=== PATIENT | female | born 1990 ===

== ENCOUNTER 2018-05-27 12:28 | Inpatient (IN) ==
[2018-05-27] MEDS ORDERED: LACTATED RINGERS 250 ML IV ONE (16:22)
[2018-05-27] MEDS ORDERED: ONDANSETRON 4 MG/2 ML VIAL IV PRN (16:22)
[2018-05-27] MEDS ORDERED: AMPICILLIN INJ 2,000 MG in SODIUM CHLORIDE 0.9% 100 ML IV ONE (16:26)
[2018-05-27 16:44] LABS: Basophils % 0.2 % (0.0-0.8); Eosinophils % 0.3 % (0.00-10.9); Hematocrit 28.7 VOL% (35.7-47.0); Hemoglobin 8.7 GM/DL (12.0-16.0); Immature Granulocytes % 0.4 %; Immature Granulocytes Absolute 0.05 #; Lymphocytes # 2.9 10*3/uL (1.4-4.0); Lymphocytes % 20.4 % (21.3-54.2); Mean Corpuscular HGB Conc 30.3 GM/DL (32-36); Mean Corpuscular Hemoglobin 21 PG (27-34); Mean Corpuscular Volume 70.5 FL (87-102); Monocytes # 0.7 10*3/uL (0.11-0.8); Monocytes % 5.2 % (1.7-12.7); Neutrophils # 10.3 10*3/uL (1.4-7.4); Neutrophils % 73.5 % (38.7-73.9); Platelet Count 381 T/CUMM (130-400); Red Blood Count 4.07 MC/CUMM (3.8-5.5); Red Cell Distribution Width 18.9 % (9.3-17.3)
[2018-05-27] MEDS ORDERED: OXYTOCIN/LR 20 UNIT/1,000 ML BAG IV SCH (17:00)
[2018-05-27] MEDS: LACTATED RINGERS 1,000 ML IV SCH ×2 (17:06→21:49)
[2018-05-27 17:08] LABS: Alanine Aminotransferase 10 U/L (13-56); Albumin 2.6 G/DL (3.4-5.0); Alkaline Phosphatase 161 U/L (45-117); Aspartate Amino Transferase 12 U/L (0-37); Bilirubin,Total < 0.39 MG/DL (0.2-1.0); Blood Urea Nitrogen 9 MG/DL (7-18); Calcium 8.4 MG/DL (8.5-10.1); Glucose 65 MG/DL (74-106); Osmolality,Calculated 269.8 MOS/KG (273-304); Sodium 137 MMOL/L (136-145); Total Protein 7.3 G/DL (6.4-8.3); Uric Acid 5.3 MG/DL (2.6-6.0)
[2018-05-27] MEDS ORDERED: INFLUENZA VIRUS VACCINE 0.5 ML SYRINGE IM ONE (17:14)
[2018-05-27 17:54] LABS: HIV Antigen/Antibody Result Nonreactive (Nonreactive)
[2018-05-27] MEDS: AMPICILLIN INJ 1,000 MG in SODIUM CHLORIDE 0.9% 100 ML IV SCH (21:20)
[2018-05-27] MEDS ORDERED: MEPERIDINE 50 MG/1 ML VIAL IV ONE (21:41)
[2018-05-27] MEDS ORDERED: PROMETHAZINE 25 MG/1 ML VIAL IM ONE (22:48)
[2018-05-27] MEDS ORDERED: ePHEDrine 50 MG/ML AMP IV PRN (22:48)
[2018-05-27] MEDS ORDERED: diphenhydrAMINE 50 MG/1 ML VIAL IV PRN ×2 (22:48)
[2018-05-27] MEDS ORDERED: NALOXONE 0.4 MG/ML VIAL IV PRN (22:48)
[2018-05-27] MEDS ORDERED: hydrOXYzine HCL 25 MG/1 ML VIAL IM PRN (22:48)
[2018-05-27] MEDS ORDERED: CITRIC ACID/SODIUM CITRATE 30 ML UDCUP PO ONE (22:53)
[2018-05-27] MEDS ORDERED: FAMOTIDINE 20 MG/2 ML VIAL IV ONE (22:54)
[2018-05-27] MEDS ORDERED: fentaNYL 2 MCG/ROPIV 0.2% EPID 100 ML EPIDURAL SCH (23:00)
[2018-05-27] MEDS ORDERED: miSOPROStol 200 MCG TABLET ONE (23:11)
[2018-05-27] MEDS ORDERED: LIDOCAINE 1% 50 ML VIAL ONE (23:11)
[2018-05-27] MEDS ORDERED: CARBOPROST TROMETHAMINE 250 MCG/ML AMP IM ONE (23:12)
[2018-05-27] MEDS ORDERED: METHYLERGONOVINE 0.2 MG/1 ML AMP ONE (23:12)
[2018-05-28] MEDS ORDERED: BENZOCAINE 20%/MENTHOL 0.5% SPRAY 56 GM CAN TOP PRN ×2 (00:46→10:42)
[2018-05-28] MEDS ORDERED: ONDANSETRON 4 MG/2 ML VIAL IV PRN (00:46)
[2018-05-28] MEDS ORDERED: OXYTOCIN/LR 20 UNIT/1,000 ML BAG IV ONE (00:46)
[2018-05-28] MEDS ORDERED: DIPH/TET/ACEL PERT BOOSTER VACCINE 0.5 ML VIAL IM ONE (00:46)
[2018-05-28] MEDS ORDERED: MEASLES/MUMPS/RUBELLA VACCINE 0.5 ML VIAL SUBCUT ONE (00:46)
[2018-05-28] MEDS ORDERED: HYDROCORTISONE 2.5% RECTAL CREAM 30 GM TUBE TOP PRN (00:46)
[2018-05-28] MEDS ORDERED: BISACODYL 10 MG SUPP RECTAL PRN (00:46)
[2018-05-28] MEDS ORDERED: LANOLIN 50% CREAM 0.3 OZ TUBE TOP PRN (00:46)
[2018-05-28] MEDS ORDERED: IBUPROFEN 800 MG TABLET PO PRN (00:46)
[2018-05-28] MEDS ORDERED: RHO(D) IMMUNE GLOBULIN 300 MCG SYRINGE IM ONE (00:46)
[2018-05-28] MEDS ORDERED: oxyCODONE/ACETAMINOPHEN 5-325 MG TABLET PO PRN ×2 (00:46)
[2018-05-28] MEDS ORDERED: WITCH HAZEL PADS 100/JAR TOP PRN (00:46)
[2018-05-28] MEDS ORDERED: ACETAMINOPHEN 325 MG TABLET PO PRN (00:46)
[2018-05-28] MEDS: AMPICILLIN INJ 1,000 MG in SODIUM CHLORIDE 0.9% 100 ML IV SCH (02:09)
[2018-05-28 05:32] LABS: Apearance,Urine CLEAR (Clear); Bilirubin,Urine Negative (Negative); Blood, Urine Small mg/dL (Negative); Glucose,Urine (UA) Negative (Negative); Hyaline Casts,Urine 1 /LPF (0-3); Ketones,Urine 80 mg/dL (Negative); Mucus,Urine Occasional /LPF (Occasional); Nitrite,Urine Negative (Negative); Protein,Urine 30 MG/DL; RBC,Urine 4 /HPF (0-4); Squamous Epithelial Cell,Urine Occasional /HPF (0-10); Urine Color Yellow (Yellow); Urine Specific Gravity 1.027 (1.001-1.035); Urine Urobilinogen < 2.0 EU/DL (0.2-1.0); WBC,Urine 2 /HPF (0-6)
[2018-05-28 05:40] LABS: Basophils % 0.1 % (0.0-0.8); Hematocrit 30.5 VOL% (35.7-47.0); Hemoglobin 9.3 GM/DL (12.0-16.0); Immature Granulocytes % 0.5 %; Immature Granulocytes Absolute 0.11 #; Lymphocytes # 2.3 10*3/uL (1.4-4.0); Lymphocytes % 10.3 % (21.3-54.2); Mean Corpuscular HGB Conc 30.5 GM/DL (32-36); Mean Corpuscular Hemoglobin 21 PG (27-34); Mean Corpuscular Volume 69.5 FL (87-102); Mean Platelet Volume 10.2 FL (9.6-12.0); Monocytes # 1.1 10*3/uL (0.11-0.8); Monocytes % 5.2 % (1.7-12.7); Neutrophils # 18.3 10*3/uL (1.4-7.4); Neutrophils % 83.9 % (38.7-73.9); Platelet Count 434 T/CUMM (130-400); Red Blood Count 4.39 MC/CUMM (3.8-5.5); Red Cell Distribution Width 18.9 % (9.3-17.3); White Blood Count 21.9 T/CUMM (4-12)
[2018-05-28 06:18] LABS: Lymphocytes 9 % (20-55); Segmented Neutrophils 86 % (50-85); Total Cells Counted 100
[2018-05-28 06:19] LABS: Hypochromasia 1+; Microcytosis 1+; Ovalocytes Slight
[2018-05-28 06:20] LABS: Platelet Estimate Increased
[2018-05-28 07:08] LABS: Basophils % 0.2 % (0.0-0.8); Hematocrit 30.3 VOL% (35.7-47.0); Hemoglobin 9.1 GM/DL (12.0-16.0); Immature Granulocytes % 0.5 %; Lymphocytes # 2.1 10*3/uL (1.4-4.0); Lymphocytes % 11.3 % (21.3-54.2); Mean Corpuscular Hemoglobin 21 PG (27-34); Mean Corpuscular Volume 71.1 FL (87-102); Monocytes # 1.1 10*3/uL (0.11-0.8); Monocytes % 5.8 % (1.7-12.7); Neutrophils # 15.1 10*3/uL (1.4-7.4); Neutrophils % 82.2 % (38.7-73.9); Platelet Count 380 T/CUMM (130-400); Red Blood Count 4.26 MC/CUMM (3.8-5.5); Red Cell Distribution Width 18.9 % (9.3-17.3); White Blood Count 18.4 T/CUMM (4-12)
[2018-05-28] MEDS: FERROUS SULFATE 325 MG TABLET PO SCH ×3 (08:52→22:16)
[2018-05-28] MEDS: MULTIVITAMIN (PRENATAL) TABLET PO SCH (08:52)
[2018-05-28] MEDS: DOCUSATE SODIUM 100 MG CAPSULE PO SCH ×2 (08:52→22:17)
[2018-05-29] MEDS: MULTIVITAMIN (PRENATAL) TABLET PO SCH (09:18)
[2018-05-29] MEDS: CHOLECALCIFEROL 5,000 UNIT TABLET PO SCH (09:19)
[2018-05-29] MEDS: DOCUSATE SODIUM 100 MG CAPSULE PO SCH ×2 (09:19→22:10)
[2018-05-29] MEDS: FERROUS SULFATE 325 MG TABLET PO SCH ×3 (09:19→22:10)
[2018-05-30 07:43] VITALS: BP 129/73
[2018-05-30] MEDS ORDERED: DIPH/TET/ACEL PERT BOOSTER VACCINE 0.5 ML VIAL IM ONE (07:58)
[2018-05-30] MEDS: DOCUSATE SODIUM 100 MG CAPSULE PO SCH (08:58)
[2018-05-30] MEDS: MULTIVITAMIN (PRENATAL) TABLET PO SCH (08:58)
[2018-05-30] MEDS: CHOLECALCIFEROL 5,000 UNIT TABLET PO SCH (08:58)
[2018-05-30] MEDS: FERROUS SULFATE 325 MG TABLET PO SCH (08:58)
== END 2018-05-30 11:50 | disposition home or self-care (01) | DRG 560 ==
LOC: N.LDOUT 12:28 → N.LD 12:29 → N.OB 05-28 14:06
PROVIDERS: ADMIT Obstetrics & Gynecology; ATTEND Obstetrics & Gynecology

== ENCOUNTER 2020-08-08 21:34 | Inpatient (IN) ==
[2020-08-08] MEDS ORDERED: LACTATED RINGERS 1,000 ML IV ONE (21:45)
[2020-08-08] MEDS ORDERED: ONDANSETRON 4 MG/2 ML VIAL IV PRN (21:45)
[2020-08-08] MEDS ORDERED: BUTORPHANOL 2 MG/ML VIAL IV PRN (21:45)
[2020-08-08] MEDS ORDERED: LACTATED RINGERS 1,000 ML IV SCH (22:00)
[2020-08-08 22:31] LABS: Basophils % 0.1 % (0.0-0.8); Eosinophils # 0.1 10*3/uL (0.0-0.87); Eosinophils % 0.4 % (0.00-10.9); Hematocrit 29.5 VOL% (35.7-47.0); Hemoglobin 8.5 GM/DL (12.0-16.0); Immature Granulocytes % 0.5 %; Immature Granulocytes Absolute 0.07 #; Lymphocytes # 2.7 10*3/uL (1.4-4.0); Lymphocytes % 17.9 % (21.3-54.2); Mean Corpuscular HGB Conc 28.8 GM/DL (32-36); Mean Corpuscular Volume 66.6 FL (87-102); Mean Platelet Volume 9.9 FL (9.6-12.0); Monocytes % 5.7 % (1.7-12.7); Neutrophils % 75.4 % (38.7-73.9); Platelet Count 410 T/CUMM (130-400); Red Blood Count 4.43 MC/CUMM (3.8-5.5); Red Cell Distribution Width 21.7 % (9.3-17.3); White Blood Count 15.2 T/CUMM (4-12)
[2020-08-08 23:04] LABS: Alanine Aminotransferase 9 U/L (13-56); Albumin 2.7 G/DL (3.4-5.0); Alkaline Phosphatase 104 U/L (45-117); Aspartate Amino Transferase 14 U/L (0-37); Bilirubin,Total < 0.39 MG/DL (0.2-1.0); Blood Urea Nitrogen 7 MG/DL (7-18); Calcium 8.8 MG/DL (8.5-10.1); Carbon Dioxide 20 MMOL/L (21-32); Estimated Glom Filtration Rate 173 ML/MIN; Glucose 84 MG/DL (74-106); Sodium 136 MMOL/L (136-145); Total Protein 7.5 G/DL (6.4-8.2)
[2020-08-09] MEDS ORDERED: ONDANSETRON 4 MG/2 ML VIAL IV ONE (06:15)
[2020-08-09] MEDS ORDERED: PROMETHAZINE 25 MG/1 ML VIAL IM ONE (06:15)
[2020-08-09] MEDS ORDERED: diphenhydrAMINE 50 MG/1 ML VIAL IV PRN ×2 (06:15)
[2020-08-09] MEDS ORDERED: ePHEDrine 50 MG/ML VIAL IV PRN (06:15)
[2020-08-09] MEDS ORDERED: NALOXONE 0.4 MG/ML VIAL IV PRN (06:15)
[2020-08-09] MEDS ORDERED: hydrOXYzine HCL 25 MG/1 ML VIAL IM PRN (06:15)
[2020-08-09] MEDS ORDERED: FAMOTIDINE 20 MG/2 ML VIAL IV ONE (06:17)
[2020-08-09] MEDS ORDERED: CITRIC ACID/SODIUM CITRATE 30 ML UDCUP PO ONE (06:19)
[2020-08-09] MEDS ORDERED: fentaNYL 2 MCG/ROPIV 0.2% EPID 100 ML EPIDURAL SCH (06:30)
[2020-08-09] MEDS ORDERED: miSOPROStoL 200 MCG TABLET ONE (07:02)
[2020-08-09] MEDS ORDERED: OXYTOCIN/LR 20 UNIT/1,000 ML BAG IV ONE ×3 (07:02→07:25)
[2020-08-09] MEDS ORDERED: CARBOPROST TROMETHAMINE 250 MCG/ML AMP IM ONE (07:03)
[2020-08-09] MEDS ORDERED: METHYLERGONOVINE 0.2 MG/1 ML AMP ONE (07:03)
[2020-08-09] MEDS ORDERED: ACETAMINOPHEN 325 MG TABLET PO PRN (07:25)
[2020-08-09] MEDS ORDERED: BENZOCAINE 20%/MENTHOL 0.5% SPRAY 56 GM CAN TOP PRN (07:25)
[2020-08-09] MEDS ORDERED: oxyCODONE/ACETAMINOPHEN 5-325 MG TABLET PO PRN (07:25)
[2020-08-09] MEDS ORDERED: HYDROCORTISONE 2.5% RECTAL CREAM 30 GM TUBE TOP PRN (07:25)
[2020-08-09] MEDS ORDERED: WITCH HAZEL PADS 100/JAR TOP PRN (07:25)
[2020-08-09] MEDS ORDERED: MEASLES/MUMPS/RUBELLA VACCINE 0.5 ML VIAL SUBCUT ONE (07:25)
[2020-08-09] MEDS ORDERED: ONDANSETRON 4 MG/2 ML VIAL IV PRN (07:25)
[2020-08-09] MEDS ORDERED: LANOLIN 50% CREAM 0.3 OZ TUBE TOP PRN (07:25)
[2020-08-09] MEDS ORDERED: BISACODYL 10 MG SUPP RECTAL PRN (07:25)
[2020-08-09] MEDS ORDERED: DIPH/TET/ACEL PERT BOOSTER VACCINE 0.5 ML VIAL IM ONE (07:25)
[2020-08-09] MEDS ORDERED: RHO(D) IMMUNE GLOBULIN 300 MCG SYRINGE IM ONE (07:25)
[2020-08-09 07:32] LABS: Cord Venous Blood HCO3 18.3 MMOL/L; Cord Venous Blood PCO2 50.5 MMHG; Cord Venous Blood PO2 < 17
[2020-08-09] MEDS: IBUPROFEN 800 MG TABLET PO PRN (10:20)
[2020-08-09] MEDS: oxyCODONE/ACETAMINOPHEN 5-325 MG TABLET PO PRN ×2 (10:24→23:56)
[2020-08-09] MEDS: DOCUSATE SODIUM 100 MG CAPSULE PO SCH ×2 (13:35→21:10)
[2020-08-10 06:53] LABS: Basophils % 0.2 % (0.0-0.8); Eosinophils # 0.2 10*3/uL (0.0-0.87); Eosinophils % 1.1 % (0.00-10.9); Hematocrit 25.7 VOL% (35.7-47.0); Hemoglobin 7.7 GM/DL (12.0-16.0); Immature Granulocytes % 0.5 %; Immature Granulocytes Absolute 0.06 #; Lymphocytes # 3.7 10*3/uL (1.4-4.0); Mean Corpuscular Volume 65.9 FL (87-102); Mean Platelet Volume 10.1 FL (9.6-12.0); Monocytes % 5.9 % (1.7-12.7); Neutrophils % 64.3 % (38.7-73.9); Platelet Count 331 T/CUMM (130-400); Red Cell Distribution Width 21.1 % (9.3-17.3); White Blood Count 13.2 T/CUMM (4-12)
[2020-08-10] MEDS: DOCUSATE SODIUM 100 MG CAPSULE PO SCH ×3 (10:03→23:14)
[2020-08-10] MEDS: IRON (CARBONYL)/VIT C/B12/FA TABLET PO SCH (10:03)
[2020-08-10] MEDS: IBUPROFEN 800 MG TABLET PO PRN (19:37)
[2020-08-11] MEDS: IBUPROFEN 800 MG TABLET PO PRN (06:23)
[2020-08-11 08:20] VITALS: BP 126/70
[2020-08-11] MEDS: IRON (CARBONYL)/VIT C/B12/FA TABLET PO SCH (09:23)
[2020-08-11] MEDS: DOCUSATE SODIUM 100 MG CAPSULE PO SCH (09:23)
== END 2020-08-11 12:30 | disposition home or self-care (01) | DRG 560 ==
LOC: N.LDOUT 21:34 → N.LD 21:36 → N.OB 08-09 09:58
PROVIDERS: ADMIT Specialist; ATTEND Specialist